=== PATIENT | female | born 1975 | race African-American/Black ===

== ENCOUNTER 2024-09-21 14:10 | Emergency (ER) | payer BC, MEDICAID ==
[~2024-09-21] VITALS: Ht 167.6 cm; Wt 90.7 kg
[2024-09-21 14:14] VITALS: TEMP 36.7; O2SAT 100
[2024-09-21] MEDS ORDERED: ERYT1OIN6 EACHEYE (16:14)
[2024-09-21] MEDS ORDERED: ERYTHROMYCIN BASE 0.5% OPHTH OINT 3.5GM BOTHEYE ONE (16:15)
[2024-09-21] MEDS ORDERED: IBUP-2029 MT (16:17)
[2024-09-21] MEDS: ERYTHROMYCIN BASE 0.5% OPHTH OINT UD OP NR (16:32)
[2024-09-21 16:38] VITALS: BP 126/79; PULSE 83; RESP 16; O2SAT 100
[2024-09-21] MEDS: IBUPROFEN 600MG TABLET PO ONE (16:38)
== END 2024-09-21 16:40 | disposition home or self-care (01) ==
LOC: ER 14:10
DX: S20.312A Abrasion of left front wall of thorax, initial encounter (principal); S70.312A Abrasion, left thigh, initial encounter; S80.811A Abrasion, right lower leg, initial encounter; H00.15 Chalazion left lower eyelid; E11.9 Type 2 diabetes mellitus without complications; W17.89XA Other fall from one level to another, initial encounter; Y93.A1 Activity, exercise machines primarily for cardiorespiratory conditioning; Y92.89 Other specified places as the place of occurrence of the external cause; Y99.8 Other external cause status
CPT/HCPCS: 99283